=== PATIENT | female | born 1965 | race African-American/Black ===

== ENCOUNTER 2019-05-14 02:46 | Emergency (ER) | payer OTHER ==
[~2019-05-14] VITALS: Ht 152.4 cm; Wt 76.2 kg
[2019-05-14] MEDS ORDERED: ALBUTEROL2.5 MG/3 M IH (07:39)
[2019-05-14] MEDS ORDERED: AMOX-CLAV 875-1 EACH PO (07:39)
[2019-05-14] MEDS ORDERED: OSEL75CA PO (07:39)
[2019-05-14] MEDS ORDERED: BUDESONIDE0.5 MG/2 M IH (07:39)
[2019-05-14] MEDS ORDERED: ZYNCOF 20-400120 ML PO (07:39)
== END 2019-05-14 08:03 ==
LOC: ER 02:46
DX: J11.1 Influenza due to unidentified influenza virus with other respiratory manifestations (principal); R50.9 Fever, unspecified

== ENCOUNTER 2019-06-28 02:38 | Emergency (ER) | payer OTHER ==
[~2019-06-28] VITALS: Ht 154.9 cm; Wt 76.2 kg
[~2019-06-28 02:38] MED LIST: ALBUTEROL2.5 MG/3 M IH; AMOX-CLAV 875-1 EACH PO; BUDESONIDE0.5 MG/2 M IH; OSEL75CA PO; ZYNCOF 20-400120 ML PO
[2019-06-28] MEDS ORDERED: TRAM1TAB98 (02:57)
== END 2019-06-28 05:44 | disposition home or self-care (01) ==
LOC: ER 02:38
DX: G89.3 Neoplasm related pain (acute) (chronic) (principal); C25.7 Malignant neoplasm of other parts of pancreas; R10.84 Generalized abdominal pain; M54.89 Other dorsalgia